=== PATIENT | male | born 1940 | race Caucasian/White ===

== ENCOUNTER 2017-02-11 08:37 | Outpatient (CLI) | payer MEDICARE ==
[~2017-02-11] VITALS: Ht 170.2 cm; Wt 79.5 kg
--- NOTE | ~2017-02-11 | OP ---
PATIENT NAME: KENNEDY CARTER MEDICAL RECORD: [id number] :38 LOCATION:D.CAT ADMISSION DATE: SURGEON: DEBORAH DESOUZA MD DATE OF OPERATION: 02/11/2017 PROCEDURES: 1. PTCA stent, left circumflex. 2. Left heart catheterization. 3. Selective coronary angiography. 4. Left ventriculogram. INDICATION: Angina and coronary artery disease. PROCEDURE: After informed consent was obtained and after detailed explanation of risks, benefits as well as alternative therapies, the patient elected to proceed with angiogram and angioplasty. The right femoral area was prepped and draped in normal sterile fashion. The right femoral artery was cannulated via modified Seldinger technique with placement of 6-Kinyarwanda sheath. All catheters exchanged through this sheath. FINDINGS: Left ventriculogram was not performed secondary to inability to cross the aortic valve. SELECTIVE CORONARY ANGIOGRAPHY: 1. Left main showed no significant angiographic disease. 2. Left anterior descending has previously placed stents proximally. These are widely patent with no significant restenosis. No disease elsewise throughout the LAD or its branches. 3. Left circumflex has a 75+ percent stenosis proximally, otherwise only mild irregularities. 4. The right coronary is totally occluded. 5. Vein graft to the right coronary is widely patent. Distal right coronary is widely patent. 6. DODSON to the LAD is closed. PTCA STENT OF THE LEFT CIRCUMFLEX: The stent used was a 3.0 x 18 mm Integrity. Result was 0% residual stenosis. OVERALL IMPRESSION: Successful percutaneous transluminal coronary angioplasty stent of the left circumflex going from 75% to 80% initial stenosis to 0% residual. TRANSINT:[id number] Voice Confirmation ID: [id number] DOCUMENT ID: [id number] DEBORAH DESOUZA MD CC: [id number] DICTATION DATE: 02/11/17 1355 AUTOMOBILE CONTRACT CLERK: 02/11/17 2235 DEP CLI 02/11/17 [place] [id number] [place] [id number]
--- NOTE | ~2017-02-11 | OP ---
PATIENT NAME: KENNEDY CARTER MEDICAL RECORD: [id number] :38 LOCATION:D.CAT ADMISSION DATE: SURGEON: DEBORAH DESOUZA MD DATE OF OPERATION: 02/11/2017 PROCEDURES: 1. QLIKVIEW DEVELOPER stent, bilateral iliacs. 2. Aortofemoral runoff. 3. Abdominal aortography. INDICATION: Claudication and peripheral vascular disease. PROCEDURE IN DETAIL: After informed consent was obtained and after detailed explanation of risks, benefits as well as alternative therapies, the patient elected to proceed with angiogram and angioplasty. Both femoral areas were cannulated via modified Seldinger technique with placement of 6-Slovak sheath. All catheters exchanged through this sheath. FINDINGS: Abdominal aortography was performed. The catheter was pulled down for aortofemoral runoff. Abdominal aortography reveals no significant abdominal aortic disease. No dissection or aneurysm formation. No renal artery stenosis. RIGHT LEG: A. Iliac: The common iliac has a 70% to 80% stenosis distally, otherwise only mild irregularities. B. Femoral system: The common and deep femoral are widely patent. Superficial femoral has at least a 70% stenosis in the distal vessel. C. Popliteal and infrapopliteal vessels are patent with 3-vessel runoff to the foot, although mildly diffusely diseased. LEFT LEG: A. Iliac. The common iliac has a 70% to 80% stenosis distally, otherwise only mild irregularities throughout the iliac system. B. Femoral system: The common superficial and deep femoral have ____ irregularities, but no flow-limiting stenosis. C. Popliteal and infrapopliteal vessels are widely patent with good 3-vessel runoff the foot, although mildly diffusely diseased. QLIKVIEW DEVELOPER STENT OF BOTH ILIACS: The right iliac was addressed with a 6 x 29 Cordis Chiara and left iliac with a 7 x 29 Cordis Chiara. Result was 0% residual stenosis. OVERALL IMPRESSION: Successful percutaneous transluminal angioplasty stent of both iliacs going from 70% to 80% initial stenosis to 0% residual stenosis. TRANSINT:[id number] Voice Confirmation ID: [id number] DOCUMENT ID: [id number] OPERATIVE REPORT [id number] KENNEDY CARTER DEBORAH WATTS MD CC: [id number] DICTATION DATE: 02/11/17 1355 UNCLAIMED PROPERTY MANAGER: 02/11/17 2258 DEP CLI 02/11/17 [place] [address]
--- NOTE | ~2017-02-11 | HEMODYNAMI ---
PATIENT:KENNEDY CARTER MEDICAL RECORD: [id number] : 38 LOCATION:D.CAT ADMISSION DATE: 02/11/17 Generatedon:02/11/201714:03 Patient name: KENNEDY CARTER Patient #: [id number] SSN: : 1940 Date of study: 02/11/2017 Page: Of Hemodynamic Procedure Report Patient Data Patient Demographics Procedure consent was obtained First Name: KENNEDY Gender: Male Last Name: EMMA : 1940 [facility] Initial: NAZ Age: 76 year(s) Patient #: [id number] Race: Unknown Additional ID: [id number] Contact details [address]: [address] [place] [address] State: [place] City: [place] Zip code: [address] Past Medical History Allergies Allergen Reaction Date Comments Reported Aspirin Other 02/11/2017 Admission Admission Data Admission Date: 02/11/2017 Admission Time: 8:37 Lab Results Lab Result Date: 02/11/2017 Lab Result Time: 9:45 Biochemistry Name Units Result Min Max BUN mg/dl 10 --(-*--)-- 7 18 Creatinine mg/dl 0.9 --(-*--)-- 0.6 1.3 CBC Name Units Result Min Max Hematocrit % 43.1 --(*---)-- 42 54 Hemoglobin g/dl 14 --(*---)-- 13.5 17.5 Procedure Procedure Types Cath Procedure Diagnostic Procedure C Coronaries w/Grafts PCI Procedure Coronary Stent Initial Miscellaneous Procedures Moderate Sedation up to 45 minutes Peripheral Cath Diagnostic Procedure Cath Peripheral Ljchb-Zqpawft-Xuh-Off Peripheral vascular Intervention Stent Stent Iliac w/plasty Initial Procedure Description Procedure Date Procedure Date: 02/11/2017 Procedure Start Time: 13:19 Procedure End Time: 14:02 Procedure Staff Name Function Juanpablo Kohli MD Performing Physician Radha Bueno RT Scrub Margarito Donato RN Nurse Wayne Medina RT Monitor Procedure Data Cath Procedure Fluoroscopy Diagnostic fluoroscopy Total fluoroscopy Time: 8 time: 8 min min Diagnostic fluoroscopy Total fluoroscopy dose: 876 dose: 876 mGy mGy Contrast Material Contrast Material Type Amount (ml) Isovue 300 173 Entry Location Entry Primary Successful Side Size (Fr) Upsize 1 Upsize Entry Closu re Successful Closure Location (Fr) 2 (Fr) Remarks Devic e Remarks Femoral Right 5 Fr 6 Fr 6 Fr Vasca de artery Mid-Length Short Closu re System Femoral Left 6 Fr 6 Fr Short Vasca de artery Mid-Length Closu re System Estimated blood loss: 10 ml Diagnostic catheters Device Type Used For End Catheter Placement Cordis 5Fr Pigtail Procedure Catheter (MP) Cordis 5Fr JL 4.0 Procedure Catheter (MP) Cordis 5Fr 3DRC Catheter Procedure (MP) Diagnostic Infinity 5Fr Procedure MPA-2 catheter Procedure Complications No complications Procedure Medications Medication Administration Route Dosage Oxygen NC 2 l/min Heparin Flush Bag added to field 2 bags (1000units/500ml NS) 0.9% NaCl I.V. 100 ml/hr Fentanyl I.V. 50 mcg Versed I.V. 1 mg Fentanyl I.V. 50 mcg Versed I.V. 1 mg Heparin Bolus I.V. 5000 units Fentanyl I.V. 50 mcg Fentanyl I.V. 50 mcg Versed I.V. 1 mg Versed I.V. 1 mg Hemodynamics Rest HGB: 14 (g/dl) Heart Rate: 67 (bpm) Snapshots Pre Cath Intra NCS Post Cath Vital Signs Time Heart Resp SPO2 etCO2 UH7psgx NIBP (mmHg) Rhythm Pain Sedation Rate (ipm) (%) (mmHg) (mmHg) Status Level (bpm) 12:34:17 64 17 100 0 0 131/70(111) NSR 0 (11) 10(A) , No pain 12:38:29 69 18 100 0 0 117/77(105) NSR 0 (11) 10(A) , No pain 12:42:35 65 18 100 0 0 120/72(96) NSR 0 (11) 10(A) , No pain 12:46:45 65 17 99 0 0 106/68(79) NSR 0 (11) 10(A) , No pain 12:50:50 61 18 99 0 0 100/61(73) NSR 0 (11) 10(A) , No pain 12:54:56 62 17 98 0 0 96/56(71) NSR 0 (11) 10(A) , No pain 12:59:00 61 18 98 0 0 94/62(76) NSR 0 (11) 10(A) , No pain 13:03:02 59 17 98 0 0 101/64(74) NSR 0 (11) 10(A) , No pain 13:07:05 57 18 98 0 0 100/66(84) NSR 0 (11) 10(A) , No pain 13:11:09 61 16 98 0 0 113/65(86) NSR 0 (11) 10(A) , No pain 13:15:19 61 17 98 0 0 103/60(80) NSR 0 (11) 9(A) , No pain 13:19:25 60 18 97 0 0 91/59(69) NSR 0 (11) 9(A) , No pain 13:23:31 66 16 94 0 0 82/47(69) NSR 0 (11) 9(A) , No pain 13:27:28 69 16 94 0 0 98/61(76) NSR 0 (11) 9(A) , No pain 13:31:30 67 18 96 0 0 113/70(92) NSR 0 (11) 9(A) , No pain 13:35:38 70 18 98 0 0 102/64(81) NSR 0 (11) 9(A) , No pain 13:40:35 73 18 98 0 0 113/72(87) NSR 0 (11) 9(A) , No pain 13:44:43 74 16 95 0 0 103/66(79) NSR 0 (11) 9(A) , No pain 13:48:44 73 16 97 0 0 104/69(89) NSR 0 (11) 9(A) , No pain 13:52:48 72 9 96 0 0 104/69(83) NSR 0 (11) 9(A) , No pain 13:56:50 72 9 95 0 0 103/73(90) NSR 0 (11) 9(A) , No pain 14:00:53 73 10 94 0 0 105/65(92) NSR 0 (11) 9(A) , No pain Medications Time Medication Route Dose Verified Delivered Reason Notes Effectiveness by by 12:52:24 Oxygen NC 2 Margarito Margarito Per physician l/min Tanmay Donato RN RN 12:52:34 Heparin Flush added 2 Margarito Margarito used for Bag to bags Tanmay Donato RN procedure (1000units/500ml field RN NS) 12:52:44 0.9% NaCl I.V. 100 Margarito Margarito Per physician ml/hr Tanmay Donato RN RN 13:15:57 Fentanyl I.V. 50 Margarito Margarito for sedation mcg Tanmay Donato RN RN 13:16:14 Versed I.V. 1 mg Margarito Margarito for sedation Tanmay Donato RN RN 13:25:43 Fentanyl I.V. 50 Margarito Margarito for sedation mcg Tanmay Donato RN RN 13:25:49 Versed I.V. 1 mg Margarito Margarito for sedation Tanmay Donato RN RN 13:31:07 Heparin Bolus I.V. 5000 Margarito Margarito for units Tanmay Donato RN anticoagulation RN 13:36:48 Fentanyl I.V. 50 Margarito Margarito for sedation mcg Tanmay Donato RN RN 13:38:39 Fentanyl I.V. 50 Margarito Margarito for sedation mcg Tanmay Donato RN RN 13:40:20 Versed I.V. 1 mg Margarito Margarito for sedation Tanmay Donato RN RN 13:41:14 Versed I.V. 1 mg Margarito Margarito for sedation Tanmay Donato RN can filling room sweeper Log Time Note 12:22:26 Margarito Donato RN sent for patient. Start room use. 12:22:27 Time tracking: Regular hours 12:22:31 Plan of Care:Hemodynamics will remain stable., Cardiac rhythm will remain stable., Comfort level will be maintained., Respiratory function will remain adequate., Patient/ family verbilizes understanding of procedure., Procedure tolerated without complication., Recovers from procedure without complications.. 12:22:48 Use device set Femoral Dx 12:22:49 Acist Syringe opened to sterile field. 12:22:49 Bag Decanter opened to sterile field. 12:22:50 Medline Cath Pack opened to sterile field. 12:22:50 Terumo 5Fr Manasquan Sheath opened to sterile field. 12:22:51 St Julián 260cm J .035 wire opened to sterile field. 12:22:52 Acist Hand Control opened to sterile field. 12:22:52 Acist Manifold opened to sterile field. 12:22:53 Diagnostic Infinity 5Fr Multipack catheter opened to sterile field. 12:22:53 Tegaderm 4 x 4 opened to sterile field. 12:25:15 Lab Result : BUN 10 mg/dl 12::15 Lab Result : Creatinine 0.9 mg/dl 12:25:15 Lab Result : Hemoglobin 14 g/dl 12:25:15 Lab Result : Hematocrit 43.1 % 12:27:21 Patient received from Pre/Post Procedure Room to CCL 1 Alert and oriented. Tansferred to table in Supine position. 12:27:26 Warm blankets applied, and charles hugger turned on for patient comfort. 12::27 Correct patient and procedure confirmed by team. 12::29 Signed procedure consent form obtained from patient. 12:27:30 ECG and BP/O2 sat monitors applied to patient. 12:27:31 Full Disclosure recording started 12:33:13 Vital chart was started 12:41:20 Baseline sample Acquired. 12::31 Rhythm: sinus rhythm 12:43:12 H&P Date Dictated: 02/09/2017 Within 30 days and on chart., H&P Addendum completed by physician on day of procedure. (MUST COMPLETE FOR ALL OUTPATIENTS). 12:43:25 Pre-procedure instructions explained to patient. 12:43:25 Pre-op teaching completed and patient verbalized understanding. 12:43:27 Family in waiting room. 12:43:28 Patient NPO since Midnight. 12:43:56 Patient allergic to Aspirin 12:43:59 Is the patient allergic to Iodine/contrast media? No. 12:44:11 Is patient on blood thinner?Yes 12:44:14 ACC The patient was administered the following blood thiners within the last 24 hours: ACCPlavix 12:44:16 Patient diabetic? No. 12:44:18 Previous problem with sedation/anesthesia? No ? 12:44:19 Snore? Yes 12:44:23 Sleep apnea? Yes 12:44:24 Deviated septum? No 12:44:29 Opens mouth fully? Yes 12:44:29 Sticks out tongue? Yes 12:44:34 Airway obstruction? No ? 12:44:35 Dentures? No ? 12:44:42 Patient pain scale 0/10 ?. 12:44:47 Zero performed for pressure channel P1 12:45:40 IV patent on arrival in left forearm with 0.9% NaCl at [facility]. 12:45:44 Lab results completed and on chart. 12:45:47 Bilateral groins area was prepped with chlora-prep and draped in sterile fashion 12:45:49 Alarms reviewed by R. N. 12:45:49 Sharps counted by scrub and verified by R.N. 12:46:01 Physician paged 12:46:34 Use device set Femoral Dx 12:46:44 Tegaderm 4 x 4 opened to sterile field. 12:46:46 Acist Hand Control opened to sterile field. 12:46:46 Acist Manifold opened to sterile field. 12:46:47 Acist Syringe opened to sterile field. 12:46:47 Bag Decanter opened to sterile field. 12:46:48 Medline Cath Pack opened to sterile field. 12:46:49 Terumo 5Fr Manasquan Sheath opened to sterile field. 12:46:50 St Julián 260cm J .035 wire opened to sterile field. 12:46:52 Diagnostic Infinity 5Fr Multipack catheter opened to sterile field. 12:47:54 Baseline sample Acquired. 12:52:24 Oxygen 2 l/min NC was administered by Margarito Donato RN; Per physician; 12:52:34 Heparin Flush Bag (1000units/500ml NS) 2 bags added to field was administered by Margarito Donato RN; used for procedure; 12:52:44 0.9% NaCl 100 ml/hr I.V. was administered by Margarito Donato RN; Per physician; 13:15:32 Physician arrived 13:15:32 --------ALL STOP TIME OUT------ 13:15:33 Final Timeout: patient, procedure, and site verified with staff and physician. All members of the team are in agreement. 13:15:35 Bilateral groins site verified by team. 13:15:38 Physical assessment completed. ASA score P 2 - A patient with mild systemic disease as per Juanpablo Kohli MD. 13:15:41 Sedation plan: IV Moderate Sedation Versed, Fentanyl 13:15:57 Fentanyl 50 mcg I.V. was administered by Margarito Donato RN; for sedation; 13:16:14 Versed 1 mg I.V. was administered by Margarito Donato RN; for sedation; 13:19:54 Procedure started. 13:19:58 Local anesthetic to right femoral artery with Lidocaine 2% by Juanpablo Kohli MD.INITIAL ACCESS ONLY 13:20:05 A 5 Fr sheath was inserted into the Right Femoral artery 13:21:10 A Cordis 5Fr Pigtail Catheter (MP) was advanced over the wire and used for Procedure. 13:22:28 Abdominal angiogram w/ runoff was performed. 13:22:51 Left leg runoff performed. 13:23:50 Right leg runoff performed. 13:23:55 Catheter exchanged over wire. 13:24:00 A Cordis 5Fr JL 4.0 Catheter (MP) was advanced over the wire and used for Procedure. 13:25:27 LCA angiography performed. 13:25:43 Fentanyl 50 mcg I.V. was administered by Margarito Donato RN; for sedation; 13:25:49 Versed 1 mg I.V. was administered by Margarito Donato RN; for sedation; 13:26:35 Catheter exchanged over wire. 13:26:40 A Cordis 5Fr 3DRC Catheter (MP) was advanced over the wire and used for Procedure. 13:26:57 Terumo 6Fr Manasquan Sheath opened to sterile field. 13:26:58 Shock Treatment Management BasixCompak Inflation Kit opened to sterile field. 13:26:58 Javier Whisper J 300cm 0.014 guide wire opened to sterile field. 13:27:07 Catheter removed. unable to cannulate vessel. 13:27:30 A Diagnostic Infinity 5Fr MPA-2 catheter was advanced over the wire and used for Procedure. 13:28:48 SVG to RCA angiography performed. 13:29:00 Cordis 6FR XB 4.0 guide catheter opened to sterile field. 13:30:39 Catheter removed. 13:30:52 Cordis 6Fr Brite Tip 35cm Sheath opened to sterile field. 13:30:52 Cordis 6Fr Brite Tip 35cm Sheath opened to sterile field. 13:31:03 Sheath upsized to a 6 Fr Mid-Length. 13:31:07 Heparin Bolus 5000 units I.V. was administered by Margarito Donato RN; for anticoagulation; 13:31:16 6 Fr XB 4 guide catheter was inserted over the wire 13:31:44 whisper wire advanced. 13:32:22 Wire advanced across lesion. 13:32:57 Inflation Number: 1 A Medtronic Integrity 3.0 X 18 stent was prepped and advanced across the Prox CX. The stent was deployed at 15 TRAVON for 0:10 (min:sec). 13:33:11 Stent catheter was removed intact over wire. 13:33:13 Wire removed. 13:33:17 Guide catheter removed. 13:36:48 Fentanyl 50 mcg I.V. was administered by Margarito Donato RN; for sedation; 13:36:55 Procedure type changed to Cath procedure, Diagnostic procedure, LHC, Coronaries w/Grafts, PCI procedure, Coronary Stent Initial, Miscellaneous Procedures, Moderate Sedation up to 45 minutes, Peripheral Cath Diagnostic Procedure, Cath Peripheral, Ntilz-Rmrhnbv-Agn-Off, Peripheral vascular Intervention, Stent, Stent Iliac w/plasty Initial 13:37:46 J wire advanced across lesion. 13:37:49 Inflation Number: 1 A Cordis Chiara 6 x 29 x 135 stent was prepped and advanced across the Distal Common Iliac, Right. The stent was deployed at 11 TRAVON for 0:10 (min:sec). 13:37:59 Stent catheter was removed intact over wire. 13:38:08 J wire removed. 13:38:22 Local anesthetic to left femerol artery with Lidocaine 2% by Juanpablo Kohli MD.ADDITIONAL ACCESS 13:38:28 A 6 Fr Mid-Length sheath was inserted into the Left Femoral artery 13:38:39 Fentanyl 50 mcg I.V. was administered by Margarito Donato RN; for sedation; 13:40:20 Versed 1 mg I.V. was administered by Margarito Donato RN; for sedation; 13:41:14 Versed 1 mg I.V. was administered by Margarito Donato RN; for sedation; 13:42:56 J wire advanced across lesion 13:45:06 Inflation Number: 1 A Cordis Chiara 7 x 29 x 135 stent was prepped and advanced across the Distal Common Iliac, Left. The stent was deployed at 13 TRAVON for 0:10 (min:sec). 13:45:08 Stent catheter was removed intact over wire. 13:45:09 Wire removed. 13:45:20 Sheath upsized to a 6 Fr Short. 13:45:32 Sheath upsized to a 6 Fr Short. 13:46:30 Vascade 6/7 Fr Closure Device opened to sterile field. 13:46:30 Vascade 6/7 Fr Closure Device opened to sterile field. 13:46:41 Sheath removed intact; hemostasis achieved with Vascade Closure System to the Right Femoral artery. 13:46:48 Sheath removed intact; hemostasis achieved with Vascade Closure System to the Left Femoral artery. 13:46:50 Procedure ended.(Physican Out) 13:50:12 Tegaderm 4 x 4 opened to sterile field. 13:51:38 Fluoroscopy time 08.00 minutes. 13:51:43 Flurop Dose total: 876 13:51:43 Fluoroscopy dose: 876 mGy 13:51:47 Contrast amount:Isovue 300 173ml. 13:51:49 Sharps counted by scrub and verified by R.N. 13:51:51 Insertion/operative site no bleeding no hematoma. 13:51:54 Post-op/insertion site Right Femoral artery dressed using a 4 x 4 and Tegaderm. 13:51:57 Post-op/insertion site Left Femoral artery dressed using a 4 x 4 and Tegaderm. 13:52:00 Post right femoral artery:stable, soft, clean and dry 13:52:06 Post left femerol artery:stable, soft, clean and dry 13:52:08 Post Procedure Pulses reassessed and unchanged 13:52:10 Post-procedure physical assessment completed. ASA score P 2 - A patient with mild systemic disease as per Juanpablo Kohli MD. 13:52:12 Post procedure rhythm: unchanged. 13:52:15 Estimated blood loss: 10 ml 13:52:16 Post procedure instruction explained to patient.Patient verbalizes understanding. 13:52:17 Patient needs reinforcement of post procedure teaching. 14:02:47 Procedure and supply charges have been captured, reviewed, submitted and are correct. 14:02:49 Procedure Complication : No complications 14:02:51 Vital chart was stopped 14:02:51 See physician's report for complete and final results. 14:02:53 Report given to Pre/Post Procedure Room. 14:02:55 Patient transfered to Pre/Post Procedure Room with Stretcher. 14:02:57 Procedure ended. 14:02:57 Full Disclosure recording stopped 14:03:03 End room use (Document Last) Intervention Summary Intervention Notes Time ActionType Lesion and Equipment Action# Pressure Duration Attributes Used 13:32:57 Place stent Prox CX Medtronic 1 15 00:10 Integrity 3.0 X 18 stent 13:37:49 Place stent Distal Cordis 1 11 00:10 Common Chiara 6 Iliac, x 29 x Right 135 stent 13:45:06 Place stent Distal Cordis 1 13 00:10 Common Chiara 7 Iliac, Left x 29 x 135 stent Device Usage Item Name Manufacture Quantity Catalog Hospital Part Current Minima l Lot# / Number Charge Number Stock Stock Serial# Code Acist Acist 2 87184 [id number] 635911 040995 20 Syringe Medical Systems Inc Bag Microtek 2 2002S 076727 21699 752565 5 Tornado [employer]. Medline Cardinal 2 [id number] 932850 93034 599845 5 Cath Pack Health Terumo 5Fr Terumo 2 DEG357 624956 265424 588212 [address] [place] 2 659533 558423 177929 114699 30 260cm J .035 wire Acist Hand Acist 2 67107 734183 514273 989214 5 Control Medical Systems Inc Acist Acist 2 91718 028232 034048 457266 5 Manifold Medical Systems Inc Diagnostic Cardinal 2 BP7937 911582 96971 871151 30 InfinRadioScape 5Fr Multipack catheter Tegaderm 4 3M 3 1626W 231807 181329 534175 5 x 4 Cordis 5Fr Cardinal 1 398839 5 Pigtail Health Catheter (MP) Cordis 5Fr Cardinal 1 050521 5 JL 4.0 Health Catheter (MP) Cordis 5Fr Cardinal 1 989010 5 3DRC Health Catheter (MP) Terumo 6Fr Terumo 1 SAF206 579853 965874 680906 40 [place] Sheath Merit Merit 1 YK2639 329399 252928 755708 15 BasixCompak Medical Inflation Kit Javier Javier 1 [id number] 665590 771558 143978 5 Whisper J Vascular 300cm 0.014 guide wire Diagnostic Cardinal 1 [id number] 498256 479513 453395 5 Infinity Health 5Fr MPA-2 catheter Cordis 6FR Cardinal 1 [id number] 114858 450010 527808 2 XB 4.0 Health guide catheter Cordis 6Fr Cardinal 2 [id number] 826362 263440 728782 1 Brite Tip Health 35cm Sheath Medtronic Medtronic 1 [id number] 712082 461588 1 [id number] Integrity 3.0 X 18 stent Cordis Cardinal 1 [id number] 943973 185077 5 Chiara 6 x Health 29 x 135 stent Cordis Cardinal 1 [id number] 839620 853552 5 Chiara 7 x Health 29 x 135 stent Vascade 02/16 Cardiva 2 [id number] 207618 697887 296642 5 Fr Closure Medical, Device Inc. Signature Audit Waddy Stage Time Signature Unsigned Intra-Procedure 02/11/2017 Wayne Medina 2:03:20 PM RT(R) Signatures Monitor : Wayne Medina RT Signature : Date : Time : [address] [address]
[~2017-02-11 08:37] MED LIST: COREG 3.1253.125 MG PO; FLOMAX0.4 MG PO; PLAVIX75 MG PO; ZOCOR80 MG PO
[2017-02-11] MEDS ORDERED: OMEGA-3100 MG PO (09:36)
[2017-02-11] MEDS ORDERED: FISH OIL 1,0001 CA1 PO (09:36)
[2017-02-11 09:37] VITALS: BP 125/73; Ht 170.2 cm; Wt 79.5 kg
[2017-02-11] MEDS ORDERED: VITAMIN D5000 UNIT PO (09:37)
[2017-02-11 09:53] LABS: BASOPHILS 0.6 % (0-2); EOSINOPHILS 9.2 % (0-7); HEMATOCRIT 43.1 % (42.0-54.0); IMMATURE GRANULOCYTES 0.1 % (0-5); LYMPHOCYTES 22.2 % (15-50); MCH 28.9 pg (26.0-34.0); MCHC 32.5 g/dL (31.0-37.0); MCV 88.9 fL (80.0-100.0); MEAN PLATELET VOLUME 10.4 fL (7.4-10.4); MONOCYTES 8.3 % (2-11); NEUTROPHILS 59.6 % (40-80); PLATELET COUNT 173 10x3/uL (130-400); RBC 4.85 10x6/uL (4.20-6.10); RDW 13.7 % (11.5-14.5); WBC 6.9 10x3/uL (4.8-10.8)
[2017-02-11 10:06] LABS: CALC OSMOLALITY 282 mosm/kg (275-300); CALCIUM 9.1 mg/dL (8.5-10.1); CARBON DIOXIDE 27.5 mmol/L (21.0-32.0); CHLORIDE - SERUM 107 mmol/L (98-107); CREATININE - SERUM 0.9 mg/dL (0.6-1.3); GLUCOSE 112 mg/dL (74-106); POTASSIUM - SERUM 4.5 mmol/L (3.5-5.1); SODIUM 142 mmol/L (136-145); UREA NITROGEN 10 mg/dL (7-18); eGFR NON AFRICAN AMERICAN 87 mL/min (90-120)
--- NOTE | 2017-02-11 14:30 | NUR ---
BILATERAL GROINS- CDI, NO HEMATOMA OR BLEEDING NOTED, SOFT TO TOUCH
--- NOTE | 2017-02-11 15:00 | NUR ---
NO CHANGES IN BOTH GROINS, DENIES NEEDS
== END 2017-02-11 17:30 | disposition home or self-care (01) ==
LOC: D.CATH 08:37
PROVIDERS: Internal Medicine Interventional Cardiology
DX: I25.119 Atherosclerotic heart disease of native coronary artery with unspecified angina pectoris (principal); I25.719 Atherosclerosis of autologous vein coronary artery bypass graft(s) with unspecified angina pectoris; I70.213 Atherosclerosis of native arteries of extremities with intermittent claudication, bilateral legs

== ENCOUNTER → 2017-04-15 14:00 | Outpatient (CLI) | payer MEDICARE ==
[2017-02-11 09:37] VITALS: BMI 27.4
[~2017-04-15 14:00] MED LIST changes: +FISH OIL 1,0001 CA1 PO; +OMEGA-3100 MG PO; +VITAMIN D5000 UNIT PO
== END | disposition home or self-care (01) ==
LOC: D.CT 14:00
DX: I71.4 Abdominal aortic aneurysm, without rupture (principal)

== ENCOUNTER 2017-06-06 10:23 | Day surgery (SDC) | payer MEDICARE ==
[~2017-06-06] VITALS: Ht 170.2 cm; Wt 79.5 kg
--- NOTE | ~2017-06-06 | OP ---
PATIENT NAME: KENNEDY CARTER MEDICAL RECORD: [id number] :38 LOCATION:D.OPS ADMISSION DATE: SURGEON: SHANTHI GILES DO DATE OF OPERATION: 06/06/2017 PROCEDURE: Colonoscopy with polypectomy. INDICATION FOR PROCEDURE: Left lower quadrant abdominal pain, changes in bowel patterns, constipation, family history of cancer of the GI tract involving the colon in his mother, history of colon polyps, gas, and bloating. SCOPE: Questetra video pediatric colonoscope. MEDICATIONS: Propofol 350 mg IV per anesthesia. WITHDRAWAL TIME: 17 minutes. ESTIMATED BLOOD LOSS: Minimal. COMPLICATIONS: None. FINDINGS: Informed consent was given. The patient was made comfortable with the above medication. After reaching an adequate level of sedation by slow IV push, the patient was placed on his left side. A digital rectal examination was performed and was normal. The endoscope was then advanced under direct visualization through the rectum to the cecum with visualization of the appendiceal orifice and the ileocecal valve. The scope was slowly withdrawn and mucosa was carefully examined. Prep quality was fair to good. There were 3 removed polyps on this examination. They were all located in the transverse colon. They were benign appearing, sessile, and ranged in size from 5 mm to 7 mm in diameter. They were all removed using hot snare in one piece and completely retrieved. There was evidence of ciqptngo-wd-gubrsc pandiverticulosis. Retroflexion was performed in the rectum with visualization of small nonbleeding internal hemorrhoids. The endoscope was then withdrawn from the patient. The patient tolerated the procedure well and there were no complications. IMPRESSION: 1. Three polyps as described above, removed using hot snare. 2. Fbucozzd-kj-tukuba pandiverticulosis. 3. Small nonbleeding internal hemorrhoids. PLAN AND RECOMMENDATIONS: 1. Discharge home when recovery parameters are met. 2. Followup biopsy specimen results. 3. High-fiber diet. 4. Continue current medications. 5. Supplement diet with fiber powder 2 tablespoons daily to b.i.d. to facilitate regular bowel movements. 6. If the fiber does not improve consistency and frequency of stool, I would recommend a trial of Linzess 75 mcg to 145 mcg daily for chronic constipation. 7. No further recall colonoscopies based on the patient's age. TRANSINT:[id number] Voice Confirmation ID: [id number] DOCUMENT ID: [id number] OPERATIVE REPORT [id number] KENNEDY CARTER NATHAN A DO CC: [id number] DICTATION DATE: 06/06/17 1415 HEALTH PROGRAM DIRECTOR: 06/06/17 1444 [facility] 06/06/17 [place] [id number] [place] [id number]
[2017-06-06] MEDS ORDERED: AMOXICILLIN500 M1 PO (12:49)
[2017-06-06 12:52] VITALS: BP 114/64; Ht 170.2 cm; Wt 79.5 kg
[2017-06-06 12:53] LABS: BASOPHILS 0.3 % (0-2); EOSINOPHILS 10.7 % (0-7); HEMATOCRIT 44.5 % (42.0-54.0); HEMOGLOBIN 14.7 g/dL (13.5-17.5); IMMATURE GRANULOCYTES 0.2 % (0-5); LYMPHOCYTES 17.8 % (15-50); MCH 28.9 pg (26.0-34.0); MCV 87.6 fL (80.0-100.0); MEAN PLATELET VOLUME 10.1 fL (7.4-10.4); MONOCYTES 5.6 % (2-11); NEUTROPHILS 65.4 % (40-80); PLATELET COUNT 172 10x3/uL (130-400); RBC 5.08 10x6/uL (4.20-6.10); RDW 13.9 % (11.5-14.5); WBC 6.1 10x3/uL (4.8-10.8)
[2017-06-06 13:08] LABS: CALC OSMOLALITY 280 mosm/kg (275-300); CARBON DIOXIDE 28.5 mmol/L (21.0-32.0); CHLORIDE - SERUM 106 mmol/L (98-107); CREATININE - SERUM 0.7 mg/dL (0.6-1.3); GLUCOSE 95 mg/dL (74-106); POTASSIUM - SERUM 3.9 mmol/L (3.5-5.1); SODIUM 142 mmol/L (136-145); UREA NITROGEN 6 mg/dL (7-18); eGFR NON AFRICAN AMERICAN > 90 mL/min (90-120)
--- NOTE | 2017-06-06 14:53 | NUR ---
1430-RECD TO ROOM FROM GI LAB. UP TO BATHROOM, VOIDS FREELY AND PASSING LARGE AMOUNT OF FLAUTS. 1445-FULL LIQUIDS SERVED, NO NAUSEA.
--- NOTE | 2017-06-06 15:29 | NUR ---
1500-IV D/C. DISCHARGE INSTRUCTIONS REVIEWED. 1510-D/C HOME VIA WHEELCHAIR WITH TO PRIVATE AUTO.
== END 2017-06-06 15:10 | disposition home or self-care (01) ==
LOC: D.OPS 10:23
PROVIDERS: Anesthesiology
DX: R10.32 Left lower quadrant pain (principal); R19.4 Change in bowel habit; Z80.0 Family history of malignant neoplasm of digestive organs; K63.5 Polyp of colon; I10 Essential (primary) hypertension; Z95.1 Presence of aortocoronary bypass graft; Z95.5 Presence of coronary angioplasty implant and graft; Z01.812 Encounter for preprocedural laboratory examination

== ENCOUNTER 2017-06-15 11:19 | Day surgery (SDC) | payer MEDICARE ==
[~2017-06-15 11:19] MED LIST changes: +AMOXICILLIN500 M1 PO
[2017-06-15] MEDS ORDERED: XANAX0.25 MG PO (12:27)
[2017-06-15 12:34] VITALS: BP 123/73; BMI 27.9
[2017-06-15 12:39] LABS: HEMATOCRIT 43.5 % (42.0-54.0); HEMOGLOBIN 14.4 g/dL (13.5-17.5); MCHC 33.1 g/dL (31.0-37.0); MCV 87.5 fL (80.0-100.0); MEAN PLATELET VOLUME 10.3 fL (7.4-10.4); RBC 4.97 10x6/uL (4.20-6.10); RDW 13.8 % (11.5-14.5); WBC 7.1 10x3/uL (4.8-10.8)
--- NOTE | 2017-06-15 15:14 | NUR ---
DILATED ESOPHAGUS WITH 20 HONDURAN.
--- NOTE | 2017-06-15 16:19 | NUR ---
1615 DISCHARGE INSTRUCTIONS COMPLETE. PRESCRIPTION FOR OMPRAZOLE GIVEN. PT HAS NO QUESTIONS OR CONCERNS AT THIS TIME. ESCORTED OUT BY PILAR HARRELL.
--- NOTE | 2017-06-16 15:04 | OP ---
PATIENT NAME: KENNEDY CARTER MEDICAL RECORD: [id number] :38 LOCATION:[facility] ADMISSION DATE: SURGEON: SHANTHI GILES DO DATE OF OPERATION: 06/15/2017 PROCEDURE: EGD with biopsies, hot forceps polypectomy, and balloon dilation. INDICATIONS FOR PROCEDURE: Epigastric pain, gas and bloating, heartburn, nausea. SCOPE: Olympus video gastroscope. MEDICATIONS: Propofol 120 mg IV per anesthesia. ESTIMATED BLOOD LOSS: Minimal. COMPLICATIONS: None. FINDINGS: Informed consent was given. The patient was made comfortable with the above medication. After reaching an adequate level of sedation by slow IV push, the patient was placed on his left side. The endoscope was then advanced under direct visualization through the mouth to the second portion of the duodenum. The upper, middle, and lower thirds of the esophagus appeared normal. Just proximal to the GE junction, there was a mild Schatzki ring, which was traversed before dilation. At the end of the procedure, an 18-20 mm CRE balloon was placed through the channel and the ring was dilated up to 20 mm maximum diameter successfully. At the GE junction, there was also evidence of LA class B reflux-induced esophagitis. The endoscope was advanced beyond the GE junction into the stomach and retroflexed to view the cardia, where a medium sized sliding hiatal hernia was present. There were no associated ulcers or abnormalities with this hernia. The fundus, body, antrum, and prepyloric regions of the stomach appeared normal. Random biopsies were taken to submit for histology and to rule out H. pylori. The endoscope was advanced beyond the pylorus into the duodenum where the bulb and second portion of the duodenum appeared normal, but there was a polyp located in the second portion of the duodenum, which did appear adenomatous. A hot biopsy forceps was used to remove the polyp and to ablate the tissue surrounding the site. The polyp was removed completely. The scope was then withdrawn from the patient. The patient tolerated the procedure well and there were no complications. IMPRESSION: 1. Schatzki ring located at the distal esophagus, dilated up to 20 mm in diameter. 2. LA class A reflux esophagitis grade B. 3. Medium size sliding hiatal hernia. 3. Duodenal polyp removed with hot forceps. PLAN AND RECOMMENDATIONS: 1. Discharge home when recovery parameters are met. 2. GERD diet and reflux precautions. 3. Continue current medications. 4. Omeprazole 20 mg daily for 6 weeks. 5. Follow up with GI clinic if symptoms worsen or fail to improve. TRANSINT:[id number] Voice Confirmation ID: [id number] DOCUMENT ID: [id number] OPERATIVE REPORT [id number] KENNEDY CARTER NATHAN A DO at 1504 CC: [id number] DICTATION DATE: 06/15/17 1524 CONCEPT ARTIST: 06/15/17 1545 [facility] 06/15/[address] [address]
== END 2017-06-15 16:15 | disposition home or self-care (01) ==
LOC: D.OPS 11:19
PROVIDERS: Anesthesiology
DX: R10.13 Epigastric pain (principal); K21.0 Gastro-esophageal reflux disease with esophagitis; R11.0 Nausea; I25.10 Atherosclerotic heart disease of native coronary artery without angina pectoris; Z95.1 Presence of aortocoronary bypass graft; Z95.5 Presence of coronary angioplasty implant and graft; K44.9 Diaphragmatic hernia without obstruction or gangrene; Z01.812 Encounter for preprocedural laboratory examination; K22.2 Esophageal obstruction; K31.7 Polyp of stomach and duodenum

== ENCOUNTER 2017-07-08 07:30 | Outpatient (CLI) | payer MEDICARE ==
--- NOTE | 2017-07-07 15:59 | HP ---
PATIENT: KENNEDY CARTER MEDICAL RECORD: [id number] ACCOUNT: [id number] LOCATION:[facility] : 39 ADMISSION DATE: 07/12/17 HISTORY AND PHYSICAL EXAMINATION NameWHKENNEDY GAGNON (76yo, M) ID# [id number]. Date/Time06/30/2017 09:51KFLNA67/31/194[facility] Dept.[facility] ClinicProviderEDMELVIN PEPE MDInsuranceMed Primary: [place] Insurance # : [id number] Referring Provider Name : MARIA ESTHER ROMERO Employer Name : UNKNOWN Med Secondary: [employer] (MEDICARE SUPPLEMENT) Insurance # : [id number] Referring Provider Name : MARIA ESTHER ROMERO Employer Name : RETIRED Prescription: ORX - Member is eligible. Chief Complaint Followup: Abdominal aortic aneurysm following AAA Patient's Care Team Referring Provider (): MARIA ESTHER ROMERO: [address] [facility] [place] [address], , Primary Care Provider: MARIA ESTHER ROMERO MD: [address] [place] [address], , Patient's Pharmacies [facility] (ERX): [phone] [place] [address], Ph , Vitals BP:112/80 sitting R arm 06/30/2017 09:16 amHR:80R/R 06/30/2017 09:16 amHt:5 ft 7 in 06/30/2017 09:12 amWt:175 lbs 06/30/2017 09:16 amNotes:murmur 06/30/2017 09:16 amBMI:27.4 06/30/2017 09:16 amAllergies Reviewed Allergies ASPIRINMedications Reviewed Medications ALPRAZolam 0.25 mg ilwcpc07/13/17 filledPRESCRIPTION SOLUTIONScarvedilol 3.125 mg jgoyps59/18/17 filledPRESCRIPTION SOLUTIONSclopidogrel 75 mg oqkvsj64/07/17 filledPRESCRIPTION SOLUTIONSfamotidine 20 mg vdmuut11/24/16 filledPRESCRIPTION SOLUTIONSHYDROcodone 10 mg-acetaminophen 325 mg /13/17 filledPRESCRIPTION SOLUTIONSPARoxetine 20 mg vcbyfz54/18/15 filledPRESCRIPTION SOLUTIONSsimvastatin 80 mg ynibeb66/21/17 filledPRESCRIPTION SOLUTIONStamsulosin 0.4 mg capsule TK TWO CS PO QD05/02/17 filledPRESCRIPTION SOLUTIONSProblems Reviewed Problems Coronary arteriosclerosis in [place] artery Abdominal aortic aneurysm Dyspnea on exertion Family History Discussed Family History Mother- Malignant tumor of colonFather- Coronary arteriosclerosisgrandfather with heart disease, siblings with cancerSocial History Discussed Social History Cardiology Family history of heart disease?: Y Smoking Status: Former smoker HISTORY AND PHYSICAL [id number] KENNEDY CARTER Cholesterol: Y High blood pressure: Y Exercise level: None Alcohol intake: None Surgical History Reviewed Surgical History Other - 2012 - skin cancer Other - 2001 - neck surgery CABG - 1994 Past Medical History Reviewed Past Medical History Blurred Vision: Y Chest Pain: Y Circulation Problems: Y Coronary Artery Disease: Y Depression: Y Dizzy Spells: Y Eye Problems: Y Heart Disease: Y High Blood Pressure: Y Pain in legs when walking: Y Prostate Problems: Y Shortness of Breath: Y Stroke: Y Documents for Discussion N/A Screening None recorded. HPI Peripheral Vascular Disease Reported by patient. Location: abdomen ("abnormal pain in my upper left stomach area. close to my heart.") Quality: cramping Severity: interferes with normal activity Notes: "06/15/17 colonoscopy and EGD done. Dr wolf looked good and biopsy is pending." abdominal aortic aneurysm ROS Patient reports exercise intolerance but reports no fever, no night sweats, no significant weight gain, and no significant weight loss. He reports dry eyes and irritation but reports no vision change. He reports chest pain on exertion, arm pain on exertion, and shortness of breath when walking but reports no shortness of breath when lying down, no palpitations, and no known heart murmur. He reports shortness of breath but reports no cough, no wheezing, and no coughing up blood. He reports abdominal pain (BLOATING) but reports no vomiting, normal appetite, no diarrhea, not vomiting blood, no nausea, and no constipation. He reports arthralgias/joint pain but reports no muscle aches, no muscle weakness, no back pain, and no swelling in the extremities. He reports weakness but reports no loss of consciousness, no numbness, no seizures, no dizziness, and no headaches. He reports no difficulty hearing and no ear pain. He reports no frequent nosebleeds and no nose/sinus problems. He reports no sore throat, no bleeding gums, no snoring, no dry mouth, no mouth ulcers, no oral abnormalities, and no teeth problems. He reports no incontinence, no difficulty urinating, no hematuria, and no increased frequency. HISTORY AND PHYSICAL [id number] KENNEDY CARTER He reports no abnormal mole, no jaundice, and no rashes. He reports no depression, no sleep disturbances, feeling safe in relationship, and no alcohol abuse. He reports no fatigue. He reports no swollen glands and no bruising. He reports no runny nose, no si nus pressure, no itching, no hives, and no frequent sneezing. ROS as noted in the HPI Physical Exam Patient is a 76-year-old male. Constitutional: General Appearance healthy-appearing, well developed, and overweight. Level of Distress NAD. Ambulation ambulation with cane. Cardiovascular: Apical Impulse not displaced or no thrill. Heart Auscultation normal s1 and s2; no murmurs, rubs, or gallops; and RRR. Arterial Pulses no abdominal aorta bruits, femoral bruits, or popliteal bruits and 2+ bilateral, c arotid 2+ bilateral, femoral 2+ bilateral, popliteal 2+ bilateral, and dorsalis pedis 2+ bilateral. Edema no edema or varicosities. Lungs: Repiratory Effort no dyspnea. Percussion no hyperresonance or dullness or flatness. Auscultation no wheezing, rhonch i, or rales / crackles and breathing sounds normal, good air movement, and CTA except as noted. Abdomen: Bowl Sounds normal. Inspection and Palpation no tenderness, guarding, masses, or rebound tenderness and soft and non-distended; AAA NONTENDER. Liver non-tender and no hepatomegaly. Spleen non-tender and no splenomegaly. Hernia none palpable. Ears, Nose, Throat: Hearing hearing decreased. Nose no external nose lesion. Lips, Teeth, and Gums no mouth or lip ulcers. Oropharynx: moist mucous membranes. Musculoskeletal System: Gait And Stance normal gait and stance. Digits and Nails normal nails and no cyanosis. Joints, Bones, and Muscles limited ROM and abnormal strength. Neurologic: Cranial Nerves grossly intact. Reflexes DTRs 2+ bilaterally throughout. Sensation grossly intact. Lymph Nodes: Lymph Nodes no cervical LAD, supraclavicular LAD, axillary LAD, or inguinal LAD. Eyes: Lids and Conjunctivae no discharge or pallor and non-injected. Pupils PERRLA. Cornea grossly intact. EOM EOMI. Lens clear. Sclerae non-icteric. Neck: Neck no masses, enlarged lymph nodes, or carotid bruits and supple and trachea midline. Thyroid no enlargement or nodules and non-tender. Skin: Inspection and Palpation no rash, lesions, ulcers, jaundice, or abnormal nevi. Assessment / Plan abdominal aortic aneurysm 1. Abdominal aortic aneurysm I71.4: Abdominal aortic aneurysm, without rupture Discussion Notes I have discussed endovascular and open abdominal aortic aneurysm repair including the expected benefits and ris k. The risks included bleeding infection stroke loss HISTORY AND PHYSICAL [id number] KENNEDY CARTER of limb and . He understands all of the above and wishes to proceed with planned procedure FREDY PEPE MD at 1559 CC: [id number] DICTATION DATE: 06/30/17 0915 OBSERVATION NURSE: EDIS 07/04/17 1154 PRE IN [facility] [address] [place] [address]
[~2017-07-08 07:30] MED LIST changes: +XANAX0.25 MG PO
[2017-07-08 11:56] LABS: BASOPHILS 0.3 % (0-2); EOSINOPHILS 14.6 % (0-7); HEMATOCRIT 43.8 % (42.0-54.0); HEMOGLOBIN 14.2 g/dL (13.5-17.5); IMMATURE GRANULOCYTES 0.1 % (0-5); LYMPHOCYTES 18.4 % (15-50); MCH 28.6 pg (26.0-34.0); MCHC 32.4 g/dL (31.0-37.0); MCV 88.1 fL (80.0-100.0); MONOCYTES 5.5 % (2-11); NEUTROPHILS 61.1 % (40-80); PLATELET COUNT 193 10x3/uL (130-400); RBC 4.97 10x6/uL (4.20-6.10); RDW 13.5 % (11.5-14.5); WBC 7.5 10x3/uL (4.8-10.8)
[2017-07-08 12:03] LABS: APTT 29.6 SECONDS (22.8-39.4); INR 1.07 (0.85-1.17); PROTIME 13.7 SECONDS (11.6-15.0)
[2017-07-08 12:09] LABS: ALBUMIN 3.4 g/dL (3.4-5.0); ALKALINE PHOSPHATASE 56 U/L (46-116); ALT (SGPT) 18 U/L (10-68); BILIRUBIN - TOTAL 0.24 mg/dL (0.2-1.3); CALC OSMOLALITY 284 mosm/kg (275-300); CALCIUM 9.1 mg/dL (8.5-10.1); CARBON DIOXIDE 30.2 mmol/L (21.0-32.0); CHLORIDE - SERUM 106 mmol/L (98-107); PROTEIN - SERUM 7.4 g/dL (6.4-8.2); SODIUM 142 mmol/L (136-145); UREA NITROGEN 11 mg/dL (7-18); eGFR NON AFRICAN AMERICAN 77 mL/min (90-120)
[2017-07-08 12:19] LABS: GLUCOSE 153 mg/dL (74-106)
[2017-07-08 14:19] LABS: APPEARANCE CLEAR (CLEAR); BILIRUBIN NEGATIVE (NEGATIVE); COLOR YELLOW (YELLOW); EPITHELIAL CELLS RARE /hpf (0-5); GLUCOSE NEGATIVE (NEGATIVE); KETONE NEGATIVE (NEGATIVE); NITRITE NEGATIVE (NEGATIVE); PROTEIN NEGATIVE (NEGATIVE); RED CELLS - URINE RARE /hpf (0-5); SPECIFIC GRAVITY 1.015 (1.005-1.020); UROBILINOGEN NORMAL (NORMAL); WHITE CELLS - URINE 0-5 /hpf (0-5)
[2017-07-08 14:20] LABS: BACTERIA FEW /hpf (NONE SEEN)
== END 2017-07-08 23:58 | disposition home or self-care (01) ==
LOC: D.LAB 07:30 → D.SDCHOLD 07-12 07:30 → EDSTATUS 07-12 07:30
PROVIDERS: Internal Medicine Cardiovascular Disease
DX: I71.4 Abdominal aortic aneurysm, without rupture (principal); Z01.810 Encounter for preprocedural cardiovascular examination; Z01.811 Encounter for preprocedural respiratory examination; Z01.812 Encounter for preprocedural laboratory examination; Z53.9 Procedure and treatment not carried out, unspecified reason

== ENCOUNTER → 2018-04-03 14:37 | Outpatient (CLI) | payer MEDICARE | END | disposition home or self-care (01) | LOC: D.CT 11:30 | DX: I71.4 Abdominal aortic aneurysm, without rupture (principal) ==

== ENCOUNTER 2018-04-06 08:00 | Outpatient (CLI) | payer MEDICARE ==
--- NOTE | ~2018-04-06 | EC ---
PATIENT:KENNEDY CARTER DATE OF SERVICE: SEX: M MEDICAL RECORD: [id number] DATE OF : 38 LOCATION:D.E[facility] AGE OF PATIENT: 77 ADMISSION DATE: 04/06/18 REFERRING PHYSICIAN: INTERPRETING PHYSICIAN: DEBORAH KOHLI MD ECHOCARDIOGRAM REPORT ECHO CHARGES 4 ECHO COMPLETE Date: 04/06 CLINICAL DIAGNOSIS: HX OF CABG/AVR/ANERYSYM AO ECHOCARDIOGRAPHIC MEASUREMENTS (adult normal given) AC root (d.<3.7cm) 3.5 cm LV Septum d (<1.2 cm> 1.0 cm Valve Excursion 1.0 cm LV Septum (systole) 1.3 cm Left Atria (s.<4.0cm> 4.6 cm LVPW d(<1.2cm) 1.2 cm RV (d.<2.3cm) 3.3 cm LVPW (sytole) 1.3 cm LV diastole(<5.6CM) 4.6 cm MV E-F(>70mm/sec) cm LV systole 3.7 cm LVOT Diameter 1.5 cm MV exc.(>10mm) 1.4 cm Est.ejection fraction (50-75%) % DOPPLER: LVIT cm/sec A 119 cm/sec E 89.0 cm/sec LA cm/sec RVSP 39 mmHg LVOT 123 cm/sec AOP1/2T m/s Asc. Ao 412 cm/sec RVOT 64 cm/sec RA cm/sec PA 111 cm/sec AV Gradient Peak 67.82mmHg AV Mean 40.59mmHg AV Area 0.6 cm MV Gradient Peak 6.10 mmHg MV Mean 2.10 mmHg MV Area cm COMMENTS: [employer] Operator: Osvaldo ALFARO Vocational Coordinator: 1 Dr. Kohli TAPE# PACS Pericardial Effusion Y DATE OF SERVICE: 04/07/2018 PROCEDURE: Echocardiogram. FINDINGS: 1. Left ventricular chamber size is within normal limits. Left ventricular systolic function is normal. Overall ejection fraction estimated 50% to 55%. 2. Left atrium is enlarged at 4.6 cm. Right atrium and right ventricle chamber sizes are within normal limits. 3. Valvular structures: Aortic valve is replaced with a tissue prosthesis. ECHOCARDIOGRAM REPORT [id number] KENNEDY CARTER The remaining valvular structures have normal structure and motion. 4. Doppler interrogation reveals moderate to severe aortic stenosis with a valve area calculating at 0.6 cm-squared and a gradient of 68 mm across the valve. Elsewise Doppler interrogation reveals mild aortic insufficiency, mild mitral regurgitation, trace tricuspid regurgitation, no other valvular insufficiency or stenosis. Pulmonary systolic pressure is estimated 39 mmHg. 5. No evidence of pericardial effusion or left ventricular thrombus. TRANSINT:[id number] Voice Confirmation ID: [id number] DOCUMENT ID: [id number] DEBORAH KOHLI MD at 1816 CC: [id number] DICTATION DATE: 04/07/18 1236 SONOGRAPHER: 04/07/18 1253 PRE [facility] [address] [place] [address]
== END 2018-04-06 11:48 | disposition home or self-care (01) ==
LOC: D.ECHO 08:00
DX: I71.4 Abdominal aortic aneurysm, without rupture (principal); I25.10 Atherosclerotic heart disease of native coronary artery without angina pectoris; R06.00 Dyspnea, unspecified; R06.02 Shortness of breath

== ENCOUNTER → 2018-05-02 11:13 | Outpatient (CLI) | payer MEDICARE | END | disposition home or self-care (01) | LOC: D.CT 11:13 | DX: I71.4 Abdominal aortic aneurysm, without rupture (principal); I70.90 Unspecified atherosclerosis; I73.9 Peripheral vascular disease, unspecified ==

== ENCOUNTER 2018-06-12 09:27 | Outpatient (CLI) | payer MEDICARE ==
[~2018-06-12] VITALS: Ht 170.2 cm; Wt 78.2 kg
--- NOTE | ~2018-06-12 | HEMODYNAMI ---
PATIENT:KENNEDY CARTER MEDICAL RECORD: [id number] : 38 LOCATION:[facility] ADMISSION DATE: 06/12/18 Generatedon:06/12/201814:13 Patient name: KENNEDY CARTER Patient #: [id number] SSN: : 1940 Date of study: 06/12/2018 Page: Of Hemodynamic Procedure Report Patient Data Patient Demographics Procedure consent was obtained First Name: KENNEDY Gender: Male Last Name: EMMA : 1940 Middle Initial: NAZ Age: 77 year(s) Patient #: [id number] Race: Unknown Additional ID: [id number] Contact details [address]: [address] [place] [address] State: [place] City: [place] Zip code: [address] Past Medical History Allergies Allergen Reaction Date Comments Reported Aspirin Other 02/11/2017 Admission Admission Data Admission Date: 06/12/2018 Admission Time: 9:27 Procedure Procedure Types Cath Procedure Peripheral Cath Diagnostic Procedure Nail Puller Peripheral Procedures Abd/Extremity Extremities Bilat Lower Extremity Procedure Description Procedure Date Procedure Date: 06/12/2018 Procedure Start Time: 13:20 Procedure Staff Name Function Chuy Coreas MD Performing Physician Itzel Parker RT Monitor Rashmi Harding RN Nurse Ny Emery RN Nurse Sergey Chowdhury RT Scrub Procedure Data Cath Procedure Fluoroscopy Diagnostic fluoroscopy Total fluoroscopy Time: 614 time: 614 min min Contrast Material Contrast Material Type Amount (ml) Isovue 300 135 Entry Location Entry Primary Successful Side Size Upsize Upsize Entry Closure Succes sful Closure Location (Fr) 1 (Fr) 2 (Fr) Remarks Device Remarks Femoral Right 5 Fr artery Femoral Right Exoseal artery Procedure Medications Medication Administration Route Dosage Heparin Flush Bag added to field 3 bags (1000units/500ml NS) Lidocaine 1% added to field 20 Oxygen etCO2 Nasal cannula 3 l/min Hemodynamics Rest Heart Rate: 73 (bpm) Snapshots Pre Cath Intra NCS Post Cath Vital Signs Time Heart Resp SPO2 etCO2 NIBP Rhythm Pain Sedation Rate (ipm) (%) (mmHg) (mmHg) Status Level (bpm) 12:53:52 70 16 91 30.2 118/71(94) NSR 0 (11) 10(A) , No pain 12:58:51 70 13 88 33.2 Measuring NSR 0 (11) 10(A) , No pain 13:00:15 68 18 93 18.8 Time NSR 0 (11) 10(A) Exceeded , No pain 13:01:49 69 11 96 33.9 130/64(96) NSR 0 (11) 10(A) , No pain 13:06:03 70 14 100 12 107/66(83) NSR 0 (11) 10(A) , No pain 13:10:15 73 15 97 11.3 101/64(75) NSR 0 (11) 10(A) , No pain 13:14:35 73 13 98 10.5 91/58(72) NSR 0 (11) 10(A) , No pain 13:18:45 70 14 98 9.8 92/53(75) NSR 0 (11) 10(A) , No pain 13:22:55 69 16 98 9.8 90/56(74) NSR 0 (11) 10(A) , No pain 13:27:01 69 18 98 12.8 97/62(70) NSR 0 (11) 10(A) , No pain 13:31:11 71 17 97 9.8 98/58(73) NSR 0 (11) 10(A) , No pain 13:35:18 75 18 96 16.6 90/60(71) NSR 0 (11) 10(A) , No pain 13:39:26 73 15 97 15.1 87/56(72) NSR 0 (11) 10(A) , No pain 13:43:34 74 16 97 12.8 86/55(65) NSR 0 (11) 10(A) , No pain 13:47:40 76 16 97 19.6 90/60(75) NSR 0 (11) 10(A) , No pain 13:51:48 72 15 98 16.6 90/58(74) NSR 0 (11) 10(A) , No pain 13:55:53 72 15 97 20.3 92/58(74) NSR 0 (11) 10(A) , No pain 14:00:01 71 16 97 16.6 98/59(74) NSR 0 (11) 10(A) , No pain 14:04:11 72 11 97 18.8 97/62(76) NSR 0 (11) 10(A) , No pain 14:08:19 77 13 96 12.8 94/62(67) NSR 0 (11) 10(A) , No pain 14:12:29 72 15 95 0 No Cuff NSR 0 (11) 10(A) , No pain Medications Time Medication Route Dose Verified Delivered Reason Notes Effe ctiveness by by 12:58:37 Heparin Flush added 3 Chuy Vera used for Bag to bags Joss Coreas MD procedure (1000units/500ml field HANKS NS) 12:58:55 Lidocaine 1% added 20ml Chuy Vera used for to vial Joss Coreas MD procedure field HANKS 12:59:14 Oxygen etCO2 3 Chuy Caraballo Nasal l/min Mehdi Coreas RN cannula Procedure Log Time Note 12:34:33 Ny Emery RN sent for patient. Start room use. 12:34:50 Time tracking: Regular hours (M-F 7:00 - 5:00) 12:34:55 Plan of Care:Hemodynamics will remain stable., Cardiac rhythm will remain stable., Comfort level will be maintained., Respiratory function will remain adequate., Patient/ family verbilizes understanding of procedure., Procedure tolerated without complication., Recovers from procedure without complications.. 12:35:01 Patient received from Outpatients to IR Alert and oriented. Tansferred to table in Supine position. 12:35:02 Correct patient and procedure confirmed by team. 12:35:04 Signed procedure consent form obtained from patient. 12:35:05 ECG and BP/O2 sat monitors applied to patient. 12:35:06 Full Disclosure recording started 12:35:06 - 12:35:07 - 12:35:10 H&P Date Dictated: 06/12/2018 H&P Addendum completed by physician on day of procedure. (MUST COMPLETE FOR ALL OUTPATIENTS). 12:35:11 Pre-procedure instructions explained to patient. 12:35:12 Pre-op teaching completed and patient verbalized understanding. 12:35:13 Family in waiting room. 12:35:14 Patient NPO since Midnight. 12:35:18 - 12:35:34 SEE ANESTHESIA NOTE FOR PRE PROCEDURE TIVA 12:35:35 - 12:50:01 Use device set IR Diagnostic 12:50:03 ACIST Syringe (88656) opened to sterile field. 12:50:03 ACIST Hand Control (67307) opened to sterile field. 12:50:04 ACIST Manifold (69204) opened to sterile field. 12:50:04 Bag Decanter () opened to sterile field. 12:50:05 Sterile Angiographic Pack opened to sterile field. 12:50:05 Tegaderm 4 x 4 (1626W) opened to sterile field. 12:52:11 Warm blankets applied, and charles hugger turned on for patient comfort. 12:52:37 Vital chart was started 12:58:37 Heparin Flush Bag (1000units/500ml NS) 3 bags added to field was administered by Chuy Coreas MD; used for procedure; 12:58:55 Lidocaine 1% 20ml vial added to field was administered by Chuy Coreas MD; used for procedure; 12:59:14 Oxygen 3 l/min etCO2 Nasal cannula was administered by Rashmi Harding RN; ; 13:05:09 DOC .035 wire (F70448) opened to sterile field. 13:05:10 CROSS 180cm wire (I35333) opened to sterile field. 13:05:10 Micropuncture VSI 4FR kit opened to sterile field. 13:05:11 Angiodynamics Omniflush 5Fr 65cm ([id number]) opened to sterile field. 13:05:12 SHEATH 5FR K[place]va (SIN922) opened to sterile field. 13:05:27 TUBING Contrast Injection High Pressure (TEB000Y) opened to sterile field. 13:05:54 Pre procedure: right dorsailis pedis pulse Doppler 13:05:59 Pre procedure: left dorsailis pedis pulse Doppler 13:06:04 Pre procedure: right posterior tibial pulse Doppler 13:06:09 Pre procedure: left posterior tibial pulse Doppler 13:06:36 Right groin area was prepped with chlora-prep and draped in sterile fashion 13:06:42 Left groin area was prepped with chlora-prep and draped in sterile fashion 13:06:54 - 13:12:59 Baseline sample Acquired. 13:16:38 Physician arrived 13:19:54 --------ALL STOP TIME OUT------ 13:19:55 Final Timeout: patient, procedure, and site verified with staff and physician. All members of the team are in agreement. 13:20:09 Procedure started. 13:20:24 Local anesthetic to right femoral artery with Lidocaine 1% by Chuy Coreas MD.INITIAL ACCESS ONLY 13:23:47 GLIDE CATHETER 5FR ANGLED 65cm (CG507) opened to sterile field. 13:23:57 TORQUE DEVICE PLASTIC .038 ( TD01) opened to sterile field. 13:24:37 GLIDE WIRE ANGLE 180cm (DB1606) opened to sterile field. 13:25:04 Arterial access obtained using ultrasound guidance. 13:25:20 A 5 Fr sheath was inserted into the Right Femoral artery 13:59:49 EXOSEAL 5Fr (EX500) opened to sterile field. 14:00:13 Sheath removed intact; hemostasis achieved with Exoseal to the Right Femoral artery. 14:00:13 A sheath was inserted into the Right Femoral artery 14:00:18 Procedure ended.(Physican Out) 14:00:33 Contrast amount:Isovue 300 135ml. 14:00:49 Fluoroscopy time 614.00 minutes. 14:04:51 Procedure and supply charges have been captured, reviewed, submitted an d are correct. 14:05:00 Report given to Outpatients. 14:13:09 Vital chart was stopped Device Usage Item Name Manufacture Quantity Catalog Hospital Part Current Minim al Lot# / Number Charge Number Stock Stock Serial# Code ACIST Syringe [employer]ist Medical 1 22996 843839 559003 919263 20 (23700) Systems Inc ACIST Hand [employer] 1 42369 057611 668988 863049 5 Control Systems Inc (98967) ACIST [employer] Medical 1 76822 637664 722363 048802 5 Manifold Systems Inc (85016) Bag Decanter Microtek 1 2001S 831325 28254 269123 5 (2001S) Medical Inc. Sterile Cardinal 1 [id number] 967394 033652 5 Angiographic Health Pack Tegaderm 4 x 3M 1 1626W 642062 845006 993040 5 4 (1626W) DOC .035 wire [employer] 1 B40992 550919 310335 5 (V07056) CROSS 180cm [employer] 1 Y65832 225526 006139 5 wire (N33154) Micropuncture VSI VASCULAR 1 7266V 164705 586150 5 VSI 4FR kit SOLUTIONS Angiodynamics Angiodynamics 1 [id number] 788370 609927 723437 5 Omniflush 5Fr 65cm ([id number]) SHEATH 5FR Terumo 1 DYK239 105559 883384 653517 40 Kaleva (IWL164) TUBING [facility] 1 [id number] 768902 869016 289846 5 Contrast Injection High Pressure ([id number]) GLIDE Terumo 1 CG507 856611 947864 5 CATHETER 5FR ANGLED 65cm (CG507) TORQUE DEVICE [place] 1 TD01 420907 445994 952176 5 PLASTIC .038 Scientific ( TD01) GLIDE WIRE Terumo 1 WA9029 141302 189023 997218 5 ANGLE 180cm (GG4715) EXOSEAL 5Fr Cardinal 1 EX500 447982 436462 747479 10 (EX500) Health Signature Audit [place] Stage Time Signature Unsigned Intra-Procedure 06/12/2018 Itzel Parker 2:13:04 PM RT(R) Signatures Monitor : Itzel Parker RT Signature : Date : Time : [address] [address]
[2018-06-12 09:52] LABS: BASOPHILS 0.3 % (0-2); EOSINOPHILS 12.7 % (0-7); HEMATOCRIT 44.2 % (42.0-54.0); HEMOGLOBIN 14.5 g/dL (13.5-17.5); IMMATURE GRANULOCYTES 0.2 % (0-5); LYMPHOCYTES 21.5 % (15-50); MCH 28.7 pg (26.0-34.0); MCHC 32.8 g/dL (31.0-37.0); MCV 87.4 fL (80.0-100.0); MEAN PLATELET VOLUME 9.7 fL (7.4-10.4); MONOCYTES 6.1 % (2-11); NEUTROPHILS 59.2 % (40-80); PLATELET COUNT 166 10x3/uL (130-400); RBC 5.06 10x6/uL (4.20-6.10); RDW 14.3 % (11.5-14.5)
[2018-06-12 10:18] LABS: CALC OSMOLALITY 280 mosm/kg (275-300); CALCIUM 8.6 mg/dL (8.5-10.1); CARBON DIOXIDE 30.4 mmol/L (21.0-32.0); CHLORIDE - SERUM 105 mmol/L (98-107); CREATININE - SERUM 0.8 mg/dL (0.6-1.3); POTASSIUM - SERUM 4.1 mmol/L (3.5-5.1); SODIUM 142 mmol/L (136-145); UREA NITROGEN 8 mg/dL (7-18); eGFR NON AFRICAN AMERICAN > 90 mL/min (90-120)
[2018-06-12 10:19] LABS: GLUCOSE 103 mg/dL (74-106)
[2018-06-12 10:20] LABS: APTT 28.9 SECONDS (22.8-39.4); INR 1.09 (0.85-1.17); PROTIME 13.7 SECONDS (11.6-15.0)
[2018-06-12 10:35] VITALS: Ht 170.2 cm; Wt 78.2 kg
== END 2018-06-12 17:25 | disposition home or self-care (01) ==
LOC: D.SP 09:27 → D.RAD 13:00 → D.SP 17:25
PROVIDERS: General Practice
DX: I71.4 Abdominal aortic aneurysm, without rupture (principal); M79.605 Pain in left leg; M79.604 Pain in right leg; Z01.812 Encounter for preprocedural laboratory examination

== ENCOUNTER → 2019-06-05 08:25 | Outpatient (CLI) | payer MEDICARE ==
[2018-06-12 10:35] VITALS: BMI 27.0
== END | disposition home or self-care (01) ==
LOC: D.CT 08:25
PROVIDERS: ATTEND Family Medicine
DX: I70.213 Atherosclerosis of native arteries of extremities with intermittent claudication, bilateral legs (principal); I71.4 Abdominal aortic aneurysm, without rupture

== ENCOUNTER → 2021-02-11 13:15 | Outpatient (CLI) | payer MEDICARE ==
[2018-06-12 10:35] VITALS: BMI 27.0
== END | disposition home or self-care (01) ==
LOC: D.CT 13:00
PROVIDERS: ATTEND Family Medicine
DX: I71.4 Abdominal aortic aneurysm, without rupture (principal)